=== PATIENT | female | born 1955 | race Caucasian/White ===

== ENCOUNTER 2018-03-27 21:13 | Emergency (ER) | payer SELFPAY ==
[2018-03-27] MEDS ORDERED: NORMAL SALINE 1000 ML 1,000 ML IV ONE (21:44)
--- NOTE | 2018-03-27 21:45 | ER Document Report ---
ED General - General Stated Complaint: FALL Time Seen by Provider: 03/27/18 21:28 Notes: Patient is a 63-year-old female 3 recent complete left hip arthroplasty completed on 03/22 who presents after having a syncopal episode after getting out of the shower. The patient states that she felt lightheaded, sat down on the toilet and apparently fell off the toilet onto her left leg and hip. She was unconscious for several seconds. EMS was contacted by her who transported her here to the emergency department. The patient currently notes a dull, throbbing, constant pain to her left hip as well as her left mid tibial surface. Nothing improves or worsens that pain. She denies a cardiac history or history of previous syncopal episodes. She has not been able to contact her doctor regarding today's episode. She denies any use of anticoagulation. No melena or hematochezia. She denies any chest pain or shortness of breath either before or after the fall. She denies any current symptoms other than the left hip pain as previously described. - Related Data Allergies/Adverse Reactions: cefadroxil Allergy (Verified 03/27/18 22:12) Penicillins Allergy (Verified 03/27/18 22:12) Sulfa (Sulfonamide Antibiotics) Allergy (Verified 03/27/18 22:12) Past Medical History - General Information source: Patient - Social History Smoking Status: Never Smoker Frequency of alcohol use: None Drug Abuse: None Lives with: Spouse/Significant other Family History: Reviewed & Not Pertinent Review of Systems - Review of Systems Notes: Constitutional: Negative for fever. Eyes: Negative for visual changes. ENT: Negative for facial injury Cardiovascular: Negative for chest injury. Positive for syncope Respiratory: Negative for shortness of breath. Gastrointestinal: Negative for abdominal injury. Genitourinary: Negative for genital injury Musculoskeletal: Positive for left hip and left leg injury Skin: Negative for laceration/abrasions. Neurological: Negative for head injury. Physical Exam - Vital signs Vitals: Temp Pulse Resp BP Pulse Ox 98.9 F 81 20 113/56 L 99 03/27/18 21:14 03/27/18 21:14 03/27/18 21:14 03/27/18 21:14 03/27/18 21:14 Interpretation: Normal Notes: PHYSICAL EXAMINATION: GENERAL: Well-appearing, well-nourished and in no acute distress. HEAD: Atraumatic, normocephalic. EYES: Pupils equal round and reactive to light, extraocular movements intact, sclera anicteric, conjunctiva are normal. ENT: nares patent, oropharynx clear without exudates. Moist mucous membranes. NECK: Normal range of motion, supple without lymphadenopathy LUNGS: Breath sounds clear to auscultation bilaterally and equal. No wheezes rales or rhonchi. HEART: Regular rate and rhythm without murmurs ABDOMEN: Soft, nontender, normoactive bowel sounds. No guarding, no rebound. No masses appreciated. Rectal: Brown stool, no gross blood, no melena EXTREMITIES: No apparent swelling or deformity to the left hip or left tib-fib region. NEUROLOGICAL: No focal neurological deficits. Moves all extremities spontaneously and on command. PSYCH: Normal mood, normal affect. SKIN: Warm, Dry, normal turgor, well-healing surgical incision over the left hip Course - Re-evaluation Re-evalutation: 03/27/18 21:45 Patient presents after having a complete left hip arthroplasty on 03/22 after having a syncopal event and following onto her left hip and left tibial plateau region. She has no obvious deformity or dislocation examination. She states that she has felt somewhat fatigued all day, had a syncopal event after getting out of the shower. States that she has been eating and drinking but does look clinically dehydrated on examination. No cardiac history. Will proceed with EKG, labs, left hip and left tib-fib x-ray. Will also provide IV rehydration and reassess the patient 03/27/18 23:36 Patient's x-rays do not show any evidence of hardware displacement or new fractures. She has remained hemodynamically within normal limits. Her labs do show a clinically significant anemia which I anticipate is from her recent hip surgery. She denies any rectal bleeding or melena. Rectal examination with brown stool, no evidence of melena or hematochezia. The patient will be started on ferrous sulfate. Her pain is improved at this time. She states she overall feels well. At this time will discharge with return precautions and follow-up recommendations. Verbal discharge instructions given a the bedside and opportunity for questions given. Medication warnings reviewed. Patient is in agreement with this plan and has verbalized understanding of return precautions and the need for primary care follow-up in the next 24-72 hours. - Vital Signs Vital signs: Temp Pulse Resp BP Pulse Ox 98 F 98 18 122/86 H 98 03/28/18 00:36 03/28/18 00:36 03/28/18 00:36 03/28/18 00:36 03/28/18 00:36 - Laboratory Result Diagrams: 03/27/18 22:24 03/27/18 22:24 Laboratory results interpreted by me: 03/27/18 03/27/18 22:24 22:24 RBC 2.87 L Hgb 8.7 L Hct 25.6 L Sodium 136.9 L - Diagnostic Test Radiology reviewed: Image reviewed, Reports reviewed Radiology results interpreted by me: 03/27/18 23:37 Left hip x-ray: No acute fracture, left tib-fib x-ray: No acute fracture - EKG Interpretation by Me Additional EKG results interpreted by me: 03/27/18 23:40 Sinus rhythm. Rate 70. No ST elevations or depressions. QTC is 398. Discharge - Discharge Clinical Impression: Left hip pain Fall Qualifiers: Encounter type: initial encounter Qualified Code(s): W19.XXXA - Unspecified fall, initial encounter Anemia Qualifiers: Anemia type: iron deficiency Iron deficiency anemia type: unspecified iron deficiency Qualified Code(s): D50.9 - Iron deficiency anemia, unspecified Condition: Good Disposition: HOME, SELF-CARE Additional Instructions: You were seen today after an episode of passing out. Your EKG here is normal. At this time, we do not feel that your episode of passing out was from any life- threatening cause. It does appear that you have anemia related to your recent hip surgery. You have been started on ferrous sulfate to treat this anemia and need to follow-up with your general doctor within the next several days for recheck of your blood count to ensure that it is not continuing to decline. I recommend that she take an ezmr-lbg-trpetyy stool softener such as docusate while taking iron supplementation as it often causes constipation. Your x-rays of your hip and lower leg on the left side do not show any fractures. Please drink plenty of fluids over the next several days. Return to emergency department if you have any further episodes of syncope, headache, weakness, numbness, chest pain, or shortness of breath. Please follow up closely with your primary care physician. Prescriptions: Ferrous Sulfate 325 mg PO TID #90 tablet Referrals: MAHOGANY FRANCO MD [Primary Care Provider] - Follow up in 3-5 days
[2018-03-27 22:36] LABS: ABSOLUTE LYMPHOCYTES (AUTO) 1.4 10^3/uL (0.5-4.7); ABSOLUTE MONOCYTES (AUTO) 0.8 10^3/uL (0.1-1.4); BASOPHILS % (AUTO) 0.4 % (0-2); EOSINOPHILS % (AUTO) 0.1 % (0-6); HEMATOCRIT 25.6 % (36.0-47.0); HEMOGLOBIN 8.7 g/dL (12.0-15.5); LYMPHOCYTES % (AUTO) 13.7 % (13-45); MEAN CORPUSCULAR HEMOGLOBIN 30.3 pg (27.0-33.4); MEAN CORPUSCULAR VOLUME 89 fl (80-97); MONOCYTES % (AUTO) 8.1 % (3-13); PLATELET COUNT 398 10^3/uL (150-450); RED BLOOD COUNT 2.87 10^6/uL (3.72-5.28); RED CELL DISTRIBUTION WIDTH 13.2 % (11.5-14.0); SEGMENTED NEUTROPHILS % (AUTO) 77.7 % (42-78); TOTAL CELLS COUNTED % (AUTO) 100 %; WHITE BLOOD COUNT 10.3 10^3/uL (4.0-10.5)
[2018-03-27 22:56] LABS: ANION GAP 6 (5-19); BLOOD UREA NITROGEN 13 mg/dL (7-20); CALCIUM 8.7 mg/dL (8.4-10.2); CARBON DIOXIDE 27 mmol/L (22-30); CHLORIDE 104 mmol/L (98-107); GLUCOSE 101 mg/dL (75-110); POTASSIUM 4.2 mmol/L (3.6-5.0); SODIUM 136.9 mmol/L (137-145)
[2018-03-27] MEDS ORDERED: FERROUS SULFATE 325 MG TABLET PO ONE (23:40)
[2018-03-28 00:37] VITALS: BP 122/86
--- NOTE | 2018-03-28 08:35 | RADIOLOGY REPORT (SQ) ---
EXAM DESCRIPTION: TIBIA FIBULA LEFT COMPLETED DATE/TIME: 03/27/2018 11:08 pm REASON FOR STUDY: fall, pain COMPARISON: None. NUMBER OF VIEWS: Two views. TECHNIQUE: Two radiographic images acquired of the left tibia and fibula to include the knee and ank le in at least one projection. LIMITATIONS: None. FINDINGS: MINERALIZATION: Normal. BONES: No acute fracture or dislocation. No worrisome bone lesions. SOFT TISSUES: There is mild soft tissue swelling noted surrounding the knee. OTHER: No other significant finding. IMPRESSION: No acute fracture dislocation. Mild soft tissue swelling is noted around the knee. TECHNICAL DOCUMENTATION: JOB ID: [id number] [employer]- All Rights Reserved Reading location - IP/workstation name: [email or web address]
--- NOTE | 2018-03-28 08:37 | RADIOLOGY REPORT (SQ) ---
EXAM DESCRIPTION: HIP LEFT AP/LATERAL COMPLETED DATE/TIME: 03/27/2018 11:08 pm REASON FOR STUDY: fall, recent surg COMPARISON: None. NUMBER OF VIEWS: Two views. TECHNIQUE: AP pelvis and additional frog-leg view of the left hip. LIMITATIONS: None. FINDINGS: MINERALIZATION: Normal. LEFT HIP: No acute fracture. Total hip replacement. RIGHT HIP: No fracture or dislocation. No worrisome bone lesions. PUBIS AND ISCHIUM: No fracture. PELVIS: No fracture. SACRUM: No fracture or dislocation. No worrisome bone lesions. LOWER LUMBAR SPINE: No fracture or dislocation. No worrisome bone lesions. No significant disc disea se. SOFT TISSUES: No findings. OTHER: No other significant finding. IMPRESSION: Left total hip replacement. No acute fracture. TECHNICAL DOCUMENTATION: JOB ID: [id number] [employer]- All Rights Reserved Reading location - IP/workstation name: [email or web address]
--- NOTE | 2018-03-29 15:29 | EKG REPORT ---
SEVERITY:- ABNORMAL ECG - SINUS RHYTHM FIRST DEGREE AV BLOCK : Confirmed by: Patricia Duncan MD 29-Mar-2018 15:28:22
== END 2018-03-28 00:37 | disposition home or self-care (01) ==
LOC: ER 21:13
DX: M25.552 Pain in left hip (principal); R55 Syncope and collapse; D50.9 Iron deficiency anemia, unspecified; Z88.0 Allergy status to penicillin; Z88.2 Allergy status to sulfonamides; Z98.890 Other specified postprocedural states
CPT/HCPCS: 36415; 80048; 84484; 85025; 93005; 93010; 96360; 99284

== ENCOUNTER → 2018-07-15 | Outpatient (CLI) | payer OTHER ==
--- NOTE | 2018-07-15 19:43 | RADIOLOGY REPORT (SQ) ---
EXAM DESCRIPTION: MRI RT UPPER JOINT WITHOUT COMPLETED DATE/TIME: 07/15/2018 5:20 pm REASON FOR STUDY: M25.511 PAIN IN RIGHT SHOULDER M25.511 PAIN IN RIGHT SHOULDER COMPARISON: None. TECHNIQUE: Right shoulder images acquired and stored on PACS. Multiplanar imaging to include fat sen sitive sequences such as T1, water sensitive sequences such as FST2/STIR, cartilage sensitive sequenc es such as FSPD/gradient-echo sequences. LIMITATIONS: None. FINDINGS: BONE MARROW AND CORTEX: No worrisome bone lesions or marrow replacement. No occult fractur es. JOINT OR BURSAL EFFUSION: Moderate amount of fluid in the subacromial/subdeltoid bursa GLENO-HUMERAL ARTICULATION: Normal articulation. No subluxation. No cystic change. No osteophytes or cartilage loss. ACROMION AND AC JOINT: Type 1 acromion with bulky acromioclavicular joint bony spurring and synovial thickening narrowing the subacromial space. This is best shown on sagittal image 10 and coronal rory ge 9. ROTATOR CUFF AND INTERVAL: There is diffuse increased signal along the undersurface of the distal sup ra and infraspinatus tendons from tendinopathy. No full-thickness tear. Subscapularis is intact. No rotator interval tear. No rotator interval thickening to suggest adhesive capsulitis. LABRUM AND BICEPS LABRAL COMPLEX: Intra-articular long head biceps tendon is intact. There is a sm all posterosuperior labral tear without paralabral cyst. REMAINDER OF LABRUM AND IGHL : No gross tear or paralabral cyst formation. Labral evaluation is less than optimal without joint distention. No thickening of IGHL to suggest adhesive capsulitis. PERIARTICULAR AND ADJACENT SOFT TISSUES: No masses or abnormal nodes. OTHER: No other significant finding. IMPRESSION: Fluid in the subacromial/subdeltoid bursa. Bulky acromioclavicular joint hypertrophy wi th narrowing of the subacromial space A versus supra and infraspinatus tendinopathy without full-thickness rotator cuff tear Small posterosuperior labral tear without paralabral cyst TECHNICAL DOCUMENTATION: JOB ID: [id number] [employer]- All Rights Reserved Reading location - IP/workstation name: [email or web address]
== END ==
LOC: RAD 17:55
PROVIDERS: ATTEND Physician Assistant
DX: M25.511 Pain in right shoulder (principal)

== ENCOUNTER → 2018-11-23 | Outpatient (CLI) | payer OTHER ==
[2018-11-23 10:52] LABS: ABSOLUTE MONOCYTES (AUTO) 0.5 10^3/uL (0.1-1.4); ABSOLUTE NEUT (AUTO) 2.8 10^3/uL (1.7-8.2); BASOPHILS % (AUTO) 0.9 % (0-2); EOSINOPHILS % (AUTO) 0.1 % (0-6); HEMATOCRIT 36.2 % (36.0-47.0); HEMOGLOBIN 11.8 g/dL (12.0-15.5); LYMPHOCYTES % (AUTO) 38.4 % (13-45); MEAN CORPUSCULAR HEMOGLOBIN 25.6 pg (27.0-33.4); MEAN CORPUSCULAR HGB CONC 32.6 g/dL (32.0-36.0); MEAN CORPUSCULAR VOLUME 78 fl (80-97); MONOCYTES % (AUTO) 8.8 % (3-13); PLATELET COUNT 355 10^3/uL (150-450); RED BLOOD COUNT 4.61 10^6/uL (3.72-5.28); RED CELL DISTRIBUTION WIDTH 15.8 % (11.5-14.0); SEGMENTED NEUTROPHILS % (AUTO) 51.8 % (42-78); TOTAL CELLS COUNTED % (AUTO) 100 %; WHITE BLOOD COUNT 5.3 10^3/uL (4.0-10.5)
[2018-11-23 11:12] LABS: BLOOD UREA NITROGEN 13 mg/dL (7-20); CHLORIDE 104 mmol/L (98-107); GLUCOSE 100 mg/dL (75-110); POTASSIUM 4.7 mmol/L (3.6-5.0)
[2018-11-23 11:13] LABS: ALANINE AMINOTRANSFERASE 21 U/L (9-52); ALBUMIN 4.1 g/dL (3.5-5.0); ALKALINE PHOSPHATASE 152 U/L (38-126); ANION GAP 11 (5-19); ASPARTATE AMINO TRANSFERASE 18 U/L (14-36); BILIRUBIN,DIRECT 0.3 mg/dL (0.0-0.4); BILIRUBIN,TOTAL 0.5 mg/dL (0.2-1.3); CARBON DIOXIDE 27 mmol/L (22-30); SODIUM 141.9 mmol/L (137-145)
== END ==
LOC: OD 10:24
PROVIDERS: ATTEND Physician Assistant
DX: Z11.2 Encounter for screening for other bacterial diseases (principal)
CPT/HCPCS: 36415; 80053; 85025; 87070